=== PATIENT | male | born 1945 | race Caucasian/White ===

== ENCOUNTER 2017-03-20 10:02 | Emergency (ER) | payer MEDICARE, OTHER ==
[~2017-03-20] VITALS: Ht 182.9 cm; Wt 90.7 kg
[~2017-03-20 10:02] MED LIST: ABILIFY5 MG; ACYCLOVIR200 MG PO; AMLODIPINE BESYL5 MG PO; ASPIRIN EC81 MG PO; BAYER CHEWABLE81 MG PO; CHONDROITIN PO; CIALIS5 MG PO; CITRACAL-VIT D1 EACH PO; DILTIAZEM 24HR240 MG PO; ELIQUIS5 MG PO; FLOMAX0.4 MG PO; GLUCOSAMINE1000 MG PO; HYDROCHLOROTH12.5 MG PO; IBUPROFEN200 MG PO; KEFLEX500 MG PO; LISINOPRIL40 MG PO; METAMUCIL PACK1 EACH PO; METOPROLOL SUCC50 MG PO; METOPROLOL TART25 MG PO; MSM1000 MG PO; NORCO 5-325 TA1 EACH PO; OMEPRAZOLE40 MG PO; OPTIFLEX-C400 MG PO; PRILOSEC OTC20 MG PO; TAMSULOSIN HCL0.4 MG PO; TESTOSTERO200 MG/1 M IM; VIAGRA100 MG PO; VITAMIN D35000 UNI1 PO; VITAMIN D5000 UNIT; ZANTAC150 MG PO
[2017-03-20] MEDS ORDERED: NORVASC5 MG PO (10:17)
[2017-03-20] MEDS ORDERED: FLUOXETINE HCL20 MG PO (10:18)
[2017-03-20] MEDS ORDERED: ZANTAC25 MG/1 ML PO (10:21)
[2017-03-20] MEDS ORDERED: HYDROCHLOROTH12.5 MG PO (10:21)
[2017-03-20] MEDS ORDERED: ANUSOL-HC25 MG PR (13:59)
== END 2017-03-20 14:15 | disposition home or self-care (01) ==
LOC: ED 10:02
DX: K62.5 Hemorrhage of anus and rectum (principal); I10 Essential (primary) hypertension; I48.91 Unspecified atrial fibrillation; Z79.899 Other long term (current) drug therapy; Z90.49 Acquired absence of other specified parts of digestive tract; Z98.890 Other specified postprocedural states
CPT/HCPCS: 80053; 85025; 99283

== ENCOUNTER 2017-07-18 19:47 | Emergency (ER) | payer MEDICARE, OTHER ==
[~2017-07-18] VITALS: Ht 182.9 cm; Wt 90.7 kg
[~2017-07-18 19:47] MED LIST changes: +ANUSOL-HC25 MG PR; +FLUOXETINE HCL20 MG PO; +NORVASC5 MG PO; +ZANTAC25 MG/1 ML PO
[2017-07-18] MEDS ORDERED: HEARTBURN RELIE75 M1 PO (20:01)
--- NOTE | 2017-07-20 00:37 | EKG ---
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
== END 2017-07-18 23:50 | disposition home or self-care (01) ==
LOC: ED 19:47
DX: I48.0 Paroxysmal atrial fibrillation (principal); R68.84 Jaw pain; I10 Essential (primary) hypertension; Z90.49 Acquired absence of other specified parts of digestive tract; Z79.899 Other long term (current) drug therapy
CPT/HCPCS: 36415; 71020; 80053; 84484; 85025; 85610; 93005; 93010; 99284

== ENCOUNTER 2018-01-01 08:23 | Emergency (ER) | payer MEDICARE, OTHER ==
[~2018-01-01] VITALS: Ht 182.9 cm; Wt 99.8 kg
[~2018-01-01 08:23] MED LIST changes: +ANUCORT-HC25 MG PR; +ELIQUIS2.5 MG PO; +HEARTBURN RELIE75 M1 PO; +PROPAFENONE HC150 MG PO; +TRAZODONE HCL50 MG PO
[2018-01-01] MEDS ORDERED: METOPROLOL SUC100 MG PO (08:40)
[2018-01-01] MEDS ORDERED: ESOMEPRAZOLE MA40 MG PO (08:41)
[2018-01-01] MEDS ORDERED: KEFLEX500 MG PO (09:39)
--- NOTE | 2018-01-01 17:27 | EKG ---
[facility] [address] [facility] [address] [place] [address] Signed Normal sinus rhythm Low voltage QRS Septal infarct (cited on or before 06-JUN-2016) Abnormal ECG When compared with ECG of 18-JUL-2017 19:56, Sinus rhythm has replaced Atrial fibrillation Questionable change in initial forces of Anterior leads Confirmed by EVANGELISTA DUNCAN MD ([id number]) on 01/01/2018 5:27:10 PM Electronically Signed By: EVANGELISTA DUNCAN MD 01/01/18 1727 PATIENT NAME: JOE HERNANDEZ Electrocardiogram DATE OF : 43 PHYSICIAN: EVANGELISTA DUNCAN MD REPORT #: [id number] REPORT IS CONFIDENTIAL AND NOT TO BE RELEASED WITHOUT AUTHORIZATION
== END 2018-01-01 10:00 | disposition home or self-care (01) ==
LOC: ED 08:23
PROC: BT40ZZZ Ultrasonography of Bladder (ICD-10-PCS; principal; 2018-01-01)
DX: I48.0 Paroxysmal atrial fibrillation (principal); N39.0 Urinary tract infection, site not specified; I10 Essential (primary) hypertension; Z79.899 Other long term (current) drug therapy
CPT/HCPCS: 51798; 81001; 87077; 87088; 87186; 93005; 93010; 99284

== ENCOUNTER 2019-06-23 11:48 | Day surgery (SDC) | payer MEDICARE, OTHER ==
[~2019-06-23] VITALS: Ht 182.9 cm; Wt 93.0 kg
[~2019-06-23 11:48] MED LIST changes: +ESOMEPRAZOLE MA40 MG PO; +METOPROLOL SUC100 MG PO
[2019-06-23] MEDS ORDERED: TERAZOSIN HCL5 MG PO (12:05)
--- NOTE | 2019-06-23 13:16 | NUR ---
06/23/19 1316 Katie Sánchez 1314-PATIENT ARRIVED TO PACU ON 2L NC AWAKE DROWSY DENIES PAIN OR NAUSEA. LAYING LEFT LATERAL. ABOMEN SOFT ENCOURAGED TO PASS GAS. IVF INFUSING. RR EVEN
--- NOTE | 2019-06-24 09:22 | OR ---
[facility] [address] [place], [place] [address] Signed DATE OF OPERATION: 06/23/2019 SURGEON: Maco Lamb MD PREOPERATIVE DIAGNOSES: 1. Persistent enigmatic diarrhea. 2. Known diverticulosis (2014). POSTOPERATIVE DIAGNOSIS: Extensive sigmoid and left-sided diverticulosis, otherwise normal. PROCEDURE PERFORMED: Total colonoscopy to cecum with biopsy of rectum and cecum. ANESTHESIA: Intravenous sedation, fentanyl 100 mcg, Versed 5 mg. INDICATION: This 73-year-old white man is well known to me from the past. He is now a patient of Dr. Duncan. He has had persistent complaints of diarrhea since a revision hiatal hernia repair elsewhere. He had undergone a Hill posterior gastropexy by me in 1998. His operation for recurrent reflux included a Moi fundoplication. Since that time, he has had persistent diarrhea as well as bloating, nausea, and so on. He underwent upper endoscopy postoperatively due to dysphagia and a [place] pH study, which was said to be normal. He did undergo colonoscopy in 2014, which showed no evidence of colitis or polyps, only diverticulosis. He underwent a fecal lactoferrin test which was positive, a surrogate marker for possible active inflammation. His diarrhea is significant. He is admitted at this time to undergo colonoscopy to better characterize the problem. The risks of bleeding, infection, and perforation were reviewed with him. He understands and wished to proceed. FINDINGS: The prep was excellent. Complete colonoscopy was undertaken to the cecum without question. There were numerous diverticula of the sigmoid and left colon. There was no sign of overt colitis and no sign of polyps or cancer. Biopsies were taken of the rectum and the cecum to assess for occult colitis. DESCRIPTION OF PROCEDURE: The patient was brought to the endoscopy suite and placed in lateral decubitus position, given intravenous sedation to the point of slurred speech and nystagmus with full Electronically Signed By: MACO LAMB MD 06/24/19 0922 PATIENT NAME: JOE HERNANDEZ OPERATIVE REPORT DATE OF : 43 REPORT #: [id number] PHYSICIAN: MACO LAMB MD PCP: EVANGELISTA DUNCAN MD REPORT IS CONFIDENTIAL AND NOT TO BE RELEASED WITHOUT AUTHORIZATION [facility] [address] [place], [place] [address] Signed cardiopulmonary monitoring. He has been off his anticoagulant for several days. An atrial fibrillation pattern was noted on EKG. Digital rectal examination was normal. An Olympus video colonoscope was passed in the rectum and manipulated throughout the colon noting numerous diverticula in the sigmoid and left colon. The scope was ultimately advanced to the cecum. The ileocecal valve and appendiceal orifice were normal. Biopsies were taken of the cecum to assess for occult colitis. The scope was withdrawn from the cecum and examination showed no sign of abnormality until diverticular change of the left colon and sigmoid once again. A biopsy was taken of the sigmoid and further down of the rectum as well. Retroflexed view was normal as well. The scope was removed and the patient was taken to recovery room in good condition. CONCLUDING DIAGNOSIS: Etiology of diarrhea uncertain. Biopsies have been obtained to assess for occult colitis. We will recommend a fiber supplement (Citrucel). If he is already taking that (not currently listed in his medications), we will initiate loperamide 4 mg p.o. b.i.d. We will see him back in 4 weeks or so to assess his progress and review his pathology reports. MD ALE Morris/ASHLEE /[id number] cc: Evangelista Duncan MD Copies: EVANGELISTA DUNCAN MD ~ Electronically Signed By: MACO LAMB MD 06/24/19 0922 PATIENT NAME: JOE HERNANDEZ OPERATIVE REPORT DATE OF : 43 REPORT #: [id number] PHYSICIAN: MACO LAMB MD PCP: EVANGELISTA DUNCAN MD REPORT IS CONFIDENTIAL AND NOT TO BE RELEASED WITHOUT AUTHORIZATION
--- NOTE | 2019-06-24 15:29 | PATH ---
[facility] [address] [place], [place] [address] Signed SPECIMEN(S): A CECUM SPECIMEN(S): B SIGMOID SPECIMEN(S): C RECTUM SPECIMEN SOURCE: A. CECUM B. SIGMOID C. RECTUM CLINICAL HISTORY: Chronic diarrhea. Postop: Diverticulosis. MICROSCOPIC DESCRIPTION: A. Sections reveal a biopsy of colonic mucosa. The epithelial surface is intact but has decreased mucus secreting ability. The basement membrane is not thickened. The glands are simple and tubular and reach all of the way to the muscularis mucosae. The lamina propria is not expanded and contains small numbers of plasma cells, lymphocytes and infrequent eosinophils. No acute inflammatory cells, excess intraepithelial lymphocytes, crypt abscesses, areas of fibrosis or granulomas are seen. There is no evidence of malignancy or atypia. B. Sections reveal biopsies of colonic mucosa. The epithelial surface is intact and has retained mucus secreting ability. The basement membrane is not thickened. Some of the glands are angulated and show areas of reduplication. The lamina propria is not expanded and contains small numbers of plasma cells, lymphocytes and infrequent eosinophils. No acute inflammatory cells, excess intraepithelial lymphocytes, crypt abscesses, areas of fibrosis, granulomas or pseudomembranes are seen. There is no evidence of malignancy or atypia. C. Sections reveal a biopsy of colonic mucosa. The epithelial surface is intact and has retained mucus secreting ability. The lamina propria is not expanded and contains small numbers of plasma cells, lymphocytes, infrequent eosinophils and a small area of intramucosal hemorrhage. No acute inflammatory cells, excess intraepithelial lymphocytes, crypt abscesses, areas of fibrosis, granulomas or pseudomembranes are seen. There is no evidence of malignancy or atypia. LJA:cml FINAL PATHOLOGIC DIAGNOSIS: A. Mucosa, cecum, biopsy: - No microscopic pathologic diagnosis. PATIENT NAME: JOE HERNANDEZ PATHOLOGY DATE OF : 43 REPORT #: [id number] PHYSICIAN: ANDREA PATHOLOGY PCP: EVANGELISTA DUNCAN MD REPORT IS CONFIDENTIAL AND NOT TO BE RELEASED WITHOUT AUTHORIZATION [facility] [address] [place], [place] [address] Signed B. Mucosa, sigmoid colon, biopsy: - Histologic features suggestive of previous colitis. - Currently no changes of colitis present. C. Mucosa, rectum, biopsy: - Mild intramucosal hemorrhage without other pathologic abnormality. LJA:cml:C2NR GROSS DESCRIPTION: Three specimens are received in three containers, labeled "WP." A. The specimen, labeled "WP, cecum biopsy," is received in formalin and consists of a single 0.2 cm pickens-brown tissue fragment. Specimen is entirely submitted in cassette (A1). B. The specimen, labeled "WP, sigmoid colon biopsy," is received in formalin and consists of a single 0.3 cm pickens-brown tissue fragment. Specimen is entirely submitted in cassette (B1). C. The specimen, labeled "WP, rectal biopsy," is received in formalin and consists of two, 0.1-0.2 cm pickens-brown tissue fragments. Specimen is entirely submitted in cassette (C1). AM (under the direct supervision of a pathologist) The Gross Description was prepared using a voice recognition system. The report was reviewed for accuracy; however, sound-alike word errors, addition and/or deletions may occur. If there is any question about this report, please contact Client Services. PERFORMING LABORATORY: The technical component was performed by [employer], [address] [place] [id number] (Armored Vehicle Officer: Verito Haines MD; CLIA# [id number]). Professional interpretation was performed by [employer], [facility], [address] [place] [id number] (Armored Vehicle Officer: Zana Corona MD; CLIA# [id number]). Diagnostician: Zana Corona MD Pathologist Electronically Signed 06/24/2019 Copies: ~ PATIENT NAME: JOE HERNANDEZ PATHOLOGY DATE OF : 43 REPORT #: [id number] PHYSICIAN: ANDREA PATHOLOGY PCP: EVANGELISTA DUNCAN MD REPORT IS CONFIDENTIAL AND NOT TO BE RELEASED WITHOUT AUTHORIZATION
== END 2019-06-23 14:00 | disposition home or self-care (01) ==
LOC: OPS 11:48 → DS 11:48 → OPS 14:00
PROVIDERS: Surgery
PROC: 0DBN8ZX Excision of Sigmoid Colon, Via Natural or Artificial Opening Endoscopic, Diagnostic (ICD-10-PCS; 2019-06-23)
PROC: 0DBP8ZX Excision of Rectum, Via Natural or Artificial Opening Endoscopic, Diagnostic (ICD-10-PCS; 2019-06-23)
PROC: 0DBH8ZX Excision of Cecum, Via Natural or Artificial Opening Endoscopic, Diagnostic (ICD-10-PCS; principal; 2019-06-23 13:00)
DX: K62.5 Hemorrhage of anus and rectum (principal); K57.31 Diverticulosis of large intestine without perforation or abscess with bleeding; K52.9 Noninfective gastroenteritis and colitis, unspecified; F32.9 Major depressive disorder, single episode, unspecified; K21.9 Gastro-esophageal reflux disease without esophagitis; I10 Essential (primary) hypertension; R41.0 Disorientation, unspecified; I48.91 Unspecified atrial fibrillation; Z98.890 Other specified postprocedural states; Z79.01 Long term (current) use of anticoagulants
CPT/HCPCS: 99153; G0500; J2250; J3010; J7121

== ENCOUNTER 2024-09-18 09:47 | Emergency (ER) | payer MEDICARE, OTHER ==
[~2024-09-18] VITALS: Ht 182.9 cm; Wt 98.9 kg
[~2024-09-18 09:47] MED LIST changes: +FLECAINIDE ACE100 MG PO; +TERAZOSIN HCL5 MG PO
[2024-09-18] MEDS ORDERED: AMLODIPINE-BEN1 EACH PO (10:03)
[2024-09-18] MEDS ORDERED: AZELASTINE137 MCG/0. NAS (10:03)
[2024-09-18] MEDS ORDERED: FLUOXETINE HCL10 MG PO (10:03)
[2024-09-18 10:22] LABS: BASOPHILS 0.3 % (0-2); EOSINOPHILS 0.3 % (0-6); HEMATOCRIT 36.6 % (35.0-50.0); HEMOGLOBIN 12.9 g/dL (12.0-18.0); LYMPHOCYTES 13.3 % (24-44); MCH 33.4 (27-36); MCHC 35.2 g/dl (30-36); MONOCYTES 8.5 % (0-12); NEUTROPHILS 77.6 % (39-80); PLATELET COUNT 185 K/uL (140-440); RBC 3.85 M/ul (4.3-5.7); RDW 12.7 (10.5-15.0)
[2024-09-18 10:43] LABS: ALBUMIN 3.5 g/dL (3.4-5.0); ALBUMIN/GLOBULIN RATIO 1.06 (1.1-2.4); ANION GAP 11.7 (7-21); BILIRUBIN, TOTAL 0.9 ng/dL (0.2-1.0); BUN/CREATININE RATIO 8.33 (6.0-28.6); CALCIUM 8.8 mg/dL (8.5-10.1); CREATININE, SERUM 0.96 mg/dL (0.70-1.30); POTASSIUM 3.7 mmol/L (3.5-5.1); PROTEIN, TOTAL 6.8 g/dL (6.4-8.2)
[2024-09-18 11:00] VITALS: BP 128/81
--- NOTE | 2024-09-20 14:56 | EKG ---
[facility] [address] [facility] [address] [place] [address] Signed Sinus rhythm with 1st degree AV block Septal infarct (cited on or before 13-FEB-2024) Inferior infarct (cited on or before 13-FEB-2024) Abnormal ECG When compared with ECG of 13-FEB-2024 02:22, No significant change was found Confirmed by Melody Castro MD ([id number]) on 09/20/2024 2:56:04 PM Electronically Signed By: MELODY CASTRO MD 09/20/24 1456 PATIENT NAME: JOE HERNANDEZ Electrocardiogram DATE OF : 43 PHYSICIAN: MLEODY CASTRO MD REPORT #: [id number] REPORT IS CONFIDENTIAL AND NOT TO BE RELEASED WITHOUT AUTHORIZATION
== END 2024-09-18 11:00 | disposition home or self-care (01) ==
LOC: ED 09:47
PROVIDERS: Emergency Medicine
DX: J10.1 Influenza due to other identified influenza virus with other respiratory manifestations (principal); R73.03 Prediabetes; I10 Essential (primary) hypertension; I48.91 Unspecified atrial fibrillation; K21.9 Gastro-esophageal reflux disease without esophagitis; Z79.01 Long term (current) use of anticoagulants; Z79.899 Other long term (current) drug therapy
CPT/HCPCS: 36415; 71045; 80053; 84484; 85025; 93005; 93010; 99284-25

== ENCOUNTER 2025-02-13 10:31 | Emergency (ER) | payer MEDICARE, OTHER ==
[~2025-02-13] VITALS: Ht 182.9 cm; Wt 104.5 kg
[~2025-02-13 10:31] MED LIST changes: +AMLODIPINE-BEN1 EACH PO; +AZELASTINE137 MCG/0. NAS; +FLUOXETINE HCL10 MG PO
[2025-02-13 11:23] LABS: BASOPHILS 0.4 % (0.2-1.2); EOSINOPHILS 1.1 % (0.8-7.0); HEMATOCRIT 40.9 % (40.1-51.0); HEMOGLOBIN 14.4 g/dL (13.7-17.5); LYMPHOCYTES 22.3 % (21.8-53.1); MCH 32.7 PG (25.7-32.2); MCHC 35.2 g/dL (32.3-36.5); MONOCYTES 8.2 % (5.3-12.2); NEUTROPHILS 67.6 % (34.0-67.9); PLATELET COUNT 203 K/uL (163-337)
[2025-02-13 11:38] LABS: ALBUMIN 3.5 g/dL (3.4-5.0); ALBUMIN/GLOBULIN RATIO 1.13 (1.1-2.4); BILIRUBIN, TOTAL 0.5 mg/dL (0.2-1.0); BUN/CREATININE RATIO 13.76 (6.0-28.6); CALCIUM 8.5 mg/dL (8.5-10.1); CREATININE, SERUM 1.09 mg/dL (0.70-1.30); PROTEIN, TOTAL 6.6 g/dL (6.4-8.2)
[2025-02-13 12:26] VITALS: BP 106/58
--- NOTE | 2025-02-13 19:36 | EKG ---
[facility] [address] [facility] [address] [place] [address] Signed Atrial fibrillation with a competing junctional pacemaker Inferior infarct (cited on or before 13-FEB-2024) Anteroseptal infarct (cited on or before 13-FEB-2024) Abnormal ECG When compared with ECG of 18-SEP-2024 10:13, Atrial fibrillation has replaced Sinus rhythm Questionable change in initial forces of Anterior leads Confirmed by Thompson Allen DO ([id number]) on 02/13/2025 7:36:30 PM Electronically Signed By: THOMPSON ALLEN DO 02/13/25 193 PATIENT NAME: JOE HERNANDEZ Dulce Electrocardiogram DATE OF : 43 PHYSICIAN: THOMPSON ALLEN DO REPORT #: [id number] REPORT IS CONFIDENTIAL AND NOT TO BE RELEASED WITHOUT AUTHORIZATION
== END 2025-02-13 12:27 | disposition home or self-care (01) ==
LOC: ED 10:31
PROVIDERS: Emergency Medicine
DX: I48.91 Unspecified atrial fibrillation (principal); I10 Essential (primary) hypertension; K21.9 Gastro-esophageal reflux disease without esophagitis; Z79.899 Other long term (current) drug therapy
CPT/HCPCS: 36415; 71045; 80053; 83880; 84484; 85025; 93005; 93010; 99285-25

== ENCOUNTER 2025-02-15 02:02 | Emergency (ER) | payer MEDICARE, OTHER ==
[~2025-02-15] VITALS: Ht 182.9 cm; Wt 104.0 kg
[2025-02-15 02:26] LABS: BASOPHILS 0.5 % (0.2-1.2); EOSINOPHILS 1.4 % (0.8-7.0); LYMPHOCYTES 29.6 % (21.8-53.1); MCH 32.3 PG (25.7-32.2); MCHC 34.6 g/dL (32.3-36.5); MCV 93.4 fL (79.0-92.2); MONOCYTES 10.9 % (5.3-12.2); NEUTROPHILS 57.1 % (34.0-67.9); RBC 4.39 M/uL (4.63-6.08)
[2025-02-15 02:31] LABS: INR 1.11 (0.80-1.30); PROTIME 13.9 Sec (11.2-14.2)
[2025-02-15 02:37] LABS: ALT (SGPT) 13.0 U/L (14-59); AST (SGOT) 1.0 U/L (15-37); GLOMERULAR FILTRATION RATE,EST 80.0 mL/min (>60); PROTEIN, TOTAL 6.9 g/dL (6.4-8.2); UREA NITROGEN 15.0 mg/dL (7-18)
[2025-02-15] MEDS ORDERED: ETOMIDATE 40 MG/20 ML VIAL IV ONE (02:45)
[2025-02-15] MEDS ORDERED: SODIUM CHLORIDE 0.9% 500 ML IV PRN (03:00)
[2025-02-15 04:15] VITALS: BP 123/88
--- NOTE | 2025-02-17 11:24 | EKG ---
[facility] [address] [place] [address] Signed Atrial fibrillation with rapid ventricular response Inferior infarct (cited on or before 13-FEB-2024) Anteroseptal infarct (cited on or before 13-FEB-2024) Abnormal ECG When compared with ECG of 13-FEB-2025 10:36, Vent. rate has increased BY 37 BPM QT has lengthened Confirmed by Clarence Castro MD ([id number]) on 02/17/2025 11:23:50 AM Electronically Signed By: CLARENCE CASTRO MD 02/17/25 1124 PATIENT NAME: JOE HERNANDEZ Dulce Electrocardiogram DATE OF : 43 PHYSICIAN: CLARENCE CASTRO MD REPORT #: [id number] REPORT IS CONFIDENTIAL AND NOT TO BE RELEASED WITHOUT AUTHORIZATION
--- NOTE | 2025-02-17 11:25 | EKG ---
[facility] [address] [place] [address] Signed Sinus rhythm with 1st degree AV block Septal infarct (cited on or before 13-FEB-2024) Inferior infarct (cited on or before 13-FEB-2024) Abnormal ECG When compared with ECG of 15-FEB-2025 02:01, (Unconfirmed) Sinus rhythm has replaced Atrial fibrillation Vent. rate has decreased BY 43 BPM Confirmed by Clarence Castro MD ([id number]) on 02/17/2025 11:25:00 AM Electronically Signed By: CLARENCE CASTRO MD 02/17/25 1125 PATIENT NAME: JOE HERNANDEZ Dulce Electrocardiogram DATE OF : 43 PHYSICIAN: CLARENCE CASTRO MD REPORT #: [id number] REPORT IS CONFIDENTIAL AND NOT TO BE RELEASED WITHOUT AUTHORIZATION
== END 2025-02-15 04:18 | disposition home or self-care (01) ==
LOC: ED 02:02
PROVIDERS: Family Medicine
DX: I48.91 Unspecified atrial fibrillation (principal); Z79.01 Long term (current) use of anticoagulants; I10 Essential (primary) hypertension; K21.9 Gastro-esophageal reflux disease without esophagitis; Z79.899 Other long term (current) drug therapy
CPT/HCPCS: 36415; 80053; 83735; 83880; 84484; 85025; 85610; 92960; 93005; 93010; 99285-25; J7040